=== PATIENT | male | born 1965 | race Caucasian/White ===

== ENCOUNTER 2017-04-16 09:48 | Emergency (ER) | payer MEDICAID ==
[~2017-04-16] VITALS: Ht 188 cm; Wt 84.0 kg
[2017-04-16] MEDS ORDERED: albuterol 2.5 MG/3 ML nebule NEB ONE (10:45)
[2017-04-16 11:16] LABS: BASOPHILS % (AUTO) 0.3 % (0-1); EOSINOPHILS # (AUTO) 0.2 X10'3 (0-0.9); EOSINOPHILS % (AUTO) 1.9 % (0-6); HEMATOCRIT 49.2 % (42.0-52.0); HEMOGLOBIN 17.4 g/dl (14.0-17.9); LYMPHOCYTES # (AUTO) 1.4 X10'3 (1.1-4.8); LYMPHOCYTES % (AUTO) 16.4 % (21-51); MEAN CORPUSCULAR HEMOGLOBIN 31.7 PG (27.0-31.0); MEAN CORPUSCULAR HGB CONC 35.3 % (33.0-36.5); MEAN CORPUSCULAR VOLUME 89.7 FL (78-98); MEAN PLATELET VOLUME 8.7 FL (7.4-10.4); MONOCYTES # (AUTO) 1.4 X10'3 (0-0.9); MONOCYTES % (AUTO) 15.7 % (2-12); NEUTROPHILS # (AUTO) 5.6 X10'3 (1.8-7.7); NEUTROPHILS % (AUTO) 65.7 % (42-75); PLATELET COUNT 117 X10'3 (140-440); RED BLOOD COUNT 5.49 X10'6 (4.70-6.10); WHITE BLOOD COUNT 8.6 X10'3 (4.5-11.0)
[2017-04-16 11:31] LABS: ALANINE AMINOTRANSFERASE 25 U/L (12-78); ALBUMIN 4.1 G/DL (3.4-5.0); ALBUMIN/GLOBULIN RATIO 1.1 (1.1-1.5); ALKALINE PHOSPHATASE 75 IU/L (46-116); ANION GAP 11 (8-16); ASPARTATE AMINO TRANSFERASE 29 U/L (10-37); BILIRUBIN,TOTAL 0.7 MG/DL (0.1-1.0); BLOOD UREA NITROGEN 22 MG/DL (7-18); CALCIUM 9.1 MG/DL (8.5-10.1); CHLORIDE 103 MMOL/L (99-107); CREATININE 1.22 MG/DL (0.60-1.10); GLUCOSE 144 MG/DL (70-104); POTASSIUM 4.1 MMOL/L (3.5-5.1); SODIUM 142 MMOL/L (135-145); TOTAL CARBON DIOXIDE 28.4 MMOL/L (24-32); eGFR 62 ML/MIN
[2017-04-16] MEDS ORDERED: predniSONE 20 mg tablet PO ONE (11:40)
[2017-04-16] MEDS ORDERED: PRED20TA PO (11:40)
[2017-04-16] MEDS ORDERED: BECL8.7A6 INH (11:40)
[2017-04-16 11:50] VITALS: BP 107/70
== END 2017-04-16 11:52 | disposition home or self-care (01) ==
LOC: ER 09:49
DX: J21.9 Acute bronchiolitis, unspecified (principal); F17.200 Nicotine dependence, unspecified, uncomplicated; Z79.899 Other long term (current) drug therapy
CPT/HCPCS: 36415; 71046; 71250; 80053; 85025; 94640; 94760; 99285; J7512